=== PATIENT | male | born 1940 | race Caucasian/White ===

== ENCOUNTER 2024-12-04 18:32 | Inpatient (IN) | payer MEDICARE, BC ==
[~2024-12-04] VITALS: Ht 181.6 cm; Wt 78.9 kg
[2024-12-04] MEDS ORDERED: MORPHINE SULFATE INJ 4 MG/ML DISP.SYRIN ONE (18:55)
[2024-12-04] MEDS ORDERED: ONDANSETRON HCL/PF 4 MG/2 ML VIAL ONE (18:55)
[2024-12-04] MEDS: IV NS 0.9% 500 ML BAG IV ONE (18:59)
[2024-12-04] MEDS: MORPHINE SULFATE INJ 2 MG/ML DISP.SYRIN IV ONE (18:59)
[2024-12-04] MEDS: ONDANSETRON HCL/PF 4 MG/2 ML VIAL IVP ONE (19:00)
[2024-12-04 19:10] LABS: CALCIUM, SERUM 9.0 mg/dL (8.5-10.1); CREATININE 1.0 mg/dL (0.6-1.3); SODIUM SERUM 141 mmol/L (136-145); UREA NITROGEN, BLOOD 19 mg/dL (7-18)
[2024-12-04 19:16] LABS: ASPARTATE AMINOTRANSFERASE 18 U/L (15-37); TOTAL PROTEIN, SERUM 7.3 g/dL (6.4-8.2)
[2024-12-04] MEDS ORDERED: HYDROMORPHONE 1 MG/1 ML DISP.SYRIN ONE (19:35)
[2024-12-04] MEDS: HYDROMORPHONE 1 MG/1 ML DISP.SYRIN IV ONE (19:38)
[2024-12-04] MEDS ORDERED: Z GUARD REMEDY 4 OZ OINT TP PRN (20:30)
[2024-12-04] MEDS ORDERED: MAG HYDROX/AL HYDROX/SIMETH 30 ML UDC PO PRN (20:30)
[2024-12-04] MEDS ORDERED: HYDROMORPHONE 1 MG/1 ML DISP.SYRIN IV PRN (20:30)
[2024-12-04] MEDS ORDERED: MAGNESIUM HYDROXIDE 30 ML UDC PO PRN (20:30)
[2024-12-04] MEDS ORDERED: ONDANSETRON HCL/PF 4 MG/2 ML VIAL IVP PRN (20:30)
[2024-12-04] MEDS ORDERED: ACETAMINOPHEN 325 MG TABLET PO PRN (20:30)
[2024-12-04 20:32] LABS: INR 1.0 (0.91-1.10)
[2024-12-04 21:47] LABS: PLATELET COUNT (AUTO) 359 K/uL (150-450); RED BLOOD CELL COUNT(AUTO) 3.68 MIL/uL (4.5-6.0); RED CELL DISTRIBUTION WIDTH 16.4 % (11.5-15.0); WHITE BLOOD COUNT (AUTO) 9.7 K/uL (4.3-11.0)
[2024-12-04] MEDS ORDERED: DIAZEPAM 5 MG TABLET PO SCH (22:00)
[2024-12-04] MEDS: HYDROMORPHONE 1 MG/1 ML DISP.SYRIN IV PRN (22:25)
[2024-12-04] MEDS: DIAZEPAM 5 MG TABLET PO SCH (23:08)
[2024-12-04] MEDS: PANTOPRAZOLE 40 MG TABLET.DR PO SCH (23:10)
[2024-12-05 00:20] VITALS: BP 155/86; TEMP 98.4; O2SAT 95
[2024-12-05] MEDS ORDERED: DIAZ5TAB PO (00:57)
[2024-12-05] MEDS ORDERED: CLOP75TA15 PO (00:57)
[2024-12-05] MEDS ORDERED: AMLO2.5T2 PO (00:57)
[2024-12-05] MEDS ORDERED: DONE23TA3 PO (00:57)
[2024-12-05] MEDS ORDERED: SERT100T PO (00:57)
[2024-12-05] MEDS ORDERED: ATOR80TA PO (00:57)
[2024-12-05 01:56] LABS: APPEARANCE,URINE CLEAR (CLEAR); BLOOD, URINE 2+ Ery/uL (NEGATIVE); LEUKOCYTE ESTERASE ,URINE NEGATIVE (NEGATIVE); NITRITE, URINE NEGATIVE (NEGATIVE); UGLUCOSE NEGATIVE (NEGATIVE)
[2024-12-05 01:58] LABS: ADD URINE CULTURE NO; SQUAMOUS EPITHELIAL CELL,UR None Seen /HPF (None Seen)
[2024-12-05 04:05] VITALS: BP 153/82; TEMP 97.8; O2SAT 96
[2024-12-05 07:03] LABS: CALCIUM, SERUM 8.4 mg/dL (8.5-10.1); CREATININE 0.9 mg/dL (0.6-1.3); PHOSPHORUS 4.5 mg/dL (2.5-4.9); SODIUM SERUM 140.0 mmol/L (136-145); UREA NITROGEN, BLOOD 16.0 mg/dL (7-18)
[2024-12-05 07:05] LABS: PLATELET COUNT (AUTO) 296 K/uL (150-450); RED BLOOD CELL COUNT(AUTO) 3.39 MIL/uL (4.5-6.0); RED CELL DISTRIBUTION WIDTH 16.3 % (11.5-15.0); WHITE BLOOD COUNT (AUTO) 7.0 K/uL (4.3-11.0)
[2024-12-05 07:54] LABS: LDL 62.0 mg/dL (0-99)
[2024-12-05 08:00] VITALS: BP 124/72; TEMP 98.2; O2SAT 99
[2024-12-05 09:36] LABS: IRON, SERUM 23 ug/dl (50-175)
[2024-12-05] MEDS ORDERED: ANESTHESIA TRAY IN PYXIS 1 EA TRAY MC ONE (14:14)
[2024-12-05] MEDS ORDERED: TRANEXAMIC ACID 1,000 MG/10 ML VIAL ONE (14:14)
[2024-12-05] MEDS ORDERED: BUPIVACAINE 0.5 % PF 150 MG/30 ML VIAL ONE (14:14)
[2024-12-05] MEDS ORDERED: FENTANYL PF 250MCG/5ML AMPUL ONE (14:31)
[2024-12-05] MEDS ORDERED: ROCURONIUM BROMIDE 50 MG/5 ML ONE (14:32)
[2024-12-05 17:30] VITALS: BP 123/98; TEMP 97.5; O2SAT 99
[2024-12-05 20:00] VITALS: BP 113/53; TEMP 97.6; O2SAT 100
[2024-12-05] MEDS: CEFAZOLIN 2 GM in IV D5W 100 ML IV SCH (21:34)
[2024-12-06] VITALS (8 sets, daily range): BP systolic 103–122; BP diastolic 56–61; TEMP 97.9–99.3; O2SAT 95–98
[2024-12-06] MEDS: HYDROCODONE/APAP 5/325MG TABLET PO PRN (08:10)
[2024-12-06] MEDS: CLOPIDOGREL BISULFATE 75 MG TABLET PO ONE (08:10)
[2024-12-06 12:10] LABS: PLATELET COUNT (AUTO) 255 K/uL (150-450); RED BLOOD CELL COUNT(AUTO) 2.74 MIL/uL (4.5-6.0); RED CELL DISTRIBUTION WIDTH 16.3 % (11.5-15.0); WHITE BLOOD COUNT (AUTO) 6.6 K/uL (4.3-11.0)
[2024-12-06 12:19] LABS: CALCIUM, SERUM 8.1 mg/dL (8.5-10.1); CREATININE 1.2 mg/dL (0.6-1.3); SODIUM SERUM 138.0 mmol/L (136-145); UREA NITROGEN, BLOOD 22.0 mg/dL (7-18)
[2024-12-06 12:25] LABS: ASPARTATE AMINOTRANSFERASE 25.0 U/L (15-37); TOTAL PROTEIN, SERUM 5.9 g/dL (6.4-8.2)
[2024-12-06 13:43] LABS: EOSINOPHILS % (MANUAL) 1 % (0-4); LYMPHOCYTES % (MANUAL) 14 % (16-48); MONOCYTES % (MANUAL) 3 % (0-11.0); NEUTROPHILS % (MANUAL) 82 (42-76); PLATELET ESTIMATE ADEQUATE
[2024-12-06] MEDS ORDERED: DIAZEPAM 5 MG TABLET PO SCH (18:00)
[2024-12-07 04:00] VITALS: BP 140/68; TEMP 97.7; O2SAT 93
[2024-12-07 07:52] LABS: PLATELET COUNT (AUTO) 230 K/uL (150-450); RED BLOOD CELL COUNT(AUTO) 2.80 MIL/uL (4.5-6.0); RED CELL DISTRIBUTION WIDTH 18.2 % (11.5-15.0); WHITE BLOOD COUNT (AUTO) 6.7 K/uL (4.3-11.0)
[2024-12-07 07:54] LABS: CALCIUM, SERUM 7.9 mg/dL (8.5-10.1); CREATININE 0.9 mg/dL (0.6-1.3); PHOSPHORUS 2.7 mg/dL (2.5-4.9); SODIUM SERUM 139.0 mmol/L (136-145); UREA NITROGEN, BLOOD 21.0 mg/dL (7-18)
[2024-12-07 08:00] VITALS: BP 121/65; TEMP 98.6
[2024-12-07] MEDS: CLOPIDOGREL BISULFATE 75 MG TABLET PO SCH ×2 (08:53→08:56)
[2024-12-07] MEDS: AMLODIPINE BESYLATE 2.5 MG TABLET PO SCH (08:54)
[2024-12-07] MEDS: SERTRALINE HCL 50 MG TABLET PO SCH (08:55)
[2024-12-07] MEDS: DONEPEZIL 5 MG TABLET PO SCH (08:55)
[2024-12-07] MEDS: ATORVASTATIN 40 MG TABLET PO SCH (08:55)
[2024-12-07 09:14] LABS: EOSINOPHILS % (MANUAL) 1 % (0-4); LYMPHOCYTES % (MANUAL) 12 % (16-48); MONOCYTES % (MANUAL) 9 % (0-11.0); NEUTROPHILS % (MANUAL) 78 (42-76); PLATELET ESTIMATE ADEQUATE
[2024-12-07 16:00] VITALS: BP 121/63; TEMP 98.7
[2024-12-07 20:00] VITALS: BP 114/61; TEMP 99.5; O2SAT 93
[2024-12-08] VITALS (11 sets, daily range): BP systolic 109–131; BP diastolic 57–86; TEMP 97.7–100; O2SAT 93–98
[2024-12-08 06:41] LABS: PLATELET COUNT (AUTO) 243 K/uL (150-450); RED BLOOD CELL COUNT(AUTO) 3.22 MIL/uL (4.5-6.0); RED CELL DISTRIBUTION WIDTH 18.9 % (11.5-15.0); WHITE BLOOD COUNT (AUTO) 7.2 K/uL (4.3-11.0)
[2024-12-08 07:09] LABS: CALCIUM, SERUM 8.2 mg/dL (8.5-10.1); CREATININE 0.9 mg/dL (0.6-1.3); PHOSPHORUS 2.7 mg/dL (2.5-4.9); SODIUM SERUM 138.0 mmol/L (136-145); UREA NITROGEN, BLOOD 19.0 mg/dL (7-18)
[2024-12-08] MEDS: SOD FERRIC GLUC 125 MG in IV NS 0.9% 100 ML IV SCH (14:37)
[2024-12-08] MEDS: HEPARIN SODIUM, PORCINE 5000 UNITS/1 ML VIAL SQ SCH (14:38)
[2024-12-09 04:00] VITALS: BP 135/72; TEMP 98.7; O2SAT 96
[2024-12-09 06:36] LABS: PLATELET COUNT (AUTO) 303 K/uL (150-450); RED BLOOD CELL COUNT(AUTO) 3.29 MIL/uL (4.5-6.0); RED CELL DISTRIBUTION WIDTH 18.9 % (11.5-15.0); WHITE BLOOD COUNT (AUTO) 6.6 K/uL (4.3-11.0)
[2024-12-09 06:55] LABS: CALCIUM, SERUM 8.6 mg/dL (8.5-10.1); CREATININE 0.9 mg/dL (0.6-1.3); PHOSPHORUS 2.7 mg/dL (2.5-4.9); SODIUM SERUM 139.0 mmol/L (136-145); UREA NITROGEN, BLOOD 18.0 mg/dL (7-18)
[2024-12-09 08:00] VITALS: BP 133/70; TEMP 99.8; O2SAT 96
[2024-12-09 08:53] VITALS: BP 133/70
[2024-12-09] MEDS ORDERED: SOD FERRIC GLUC 125 MG in IV NS 0.9% 100 ML IV SCH (14:00)
== END 2024-12-09 15:18 | DRG 481 ==
LOC: ER 18:35 → MEDSG1 20:59
PROVIDERS: ADMIT Nurse Practitioner Acute Care; ATTEND Nurse Practitioner Family
PROC: 0QS606Z Reposition Right Upper Femur with Intramedullary Internal Fixation Device, Open Approach (ICD-10-PCS; principal; 2024-12-05 14:30)
PROC: 30233N1 Transfusion of Nonautologous Red Blood Cells into Peripheral Vein, Percutaneous Approach (ICD-10-PCS; 2024-12-06)
DX: S72.141A Displaced intertrochanteric fracture of right femur, initial encounter for closed fracture (principal); F03.94 Unspecified dementia, unspecified severity, with anxiety; Y92.89 Other specified places as the place of occurrence of the external cause; I25.10 Atherosclerotic heart disease of native coronary artery without angina pectoris; H91.10 Presbycusis, unspecified ear; F41.9 Anxiety disorder, unspecified; S50.312A Abrasion of left elbow, initial encounter; W01.0XXA Fall on same level from slipping, tripping and stumbling without subsequent striking against object, initial encounter; Z79.02 Long term (current) use of antithrombotics/antiplatelets; Y92.481 Parking lot as the place of occurrence of the external cause; E78.5 Hyperlipidemia, unspecified; I10 Essential (primary) hypertension; I25.2 Old myocardial infarction; D64.9 Anemia, unspecified; M21.851 Other specified acquired deformities of right thigh
CPT/HCPCS: 36415; 71045-TC; 72192-TC; 73501; 73502; 73552; 80048-TC; 80053-TC; 80061-TC; 80076-TC; 81001; 82728-TC; 83540-TC; 83735-TC; 84100-TC; 84443-TC; 85025-TC; 85027-TC; 85730-TC; 86850-TC; 93307-TC; 97110-TC; 97112-TC; 97116-TC; 97530-TC; A4223; A6209; A6223; A6253; A6254; A6403; C1713; G0378; J0690; J1171; J1644; J1885; J2270; J2405; J2704; J2916; J3010; J3490; J7030; J7040; J7050; J7060; P9016